=== PATIENT | male | born 1950 | race Caucasian/White ===

== ENCOUNTER 2016-07-19 10:45 | Inpatient (IN) | payer OTHER, MEDICARE ==
[~2016-07-19] VITALS: Ht 177.8 cm; Wt 91.6 kg
[2016-07-19] VITALS (13 sets, daily range): BP systolic 112–151; BP diastolic 59–104; PULSE 51–71; RESP 9–17; O2SAT 93–98
--- NOTE | 2016-07-19 10:37 | ED.REPORT ---
HPI-Chest Pain 40 and Over Date of Service July 19, 2016 ED Provider: Farhan Tejeda MD History of Present Illness: I received a phone call from [facility] indicating that a patient with a suspected inferior ST segment elevation ME, and I activated the Hematology Oncology Consultant process based on that information. Patient has received aspirin, Plavix (600mg), nitroglycerin, and a heparin bolus of 5000 units prior to arrival. Patient is a 65 year old male who presents to the ED via EMS due to a possible STEMI. The patient is now asymptomatic but prior to arrival the patient complained of a dull chest pain that radiated into his left shoulder this morning. He rated the pain as a 4/10. Please note that I performed a limited history and physical as the manager behavior Dr. Castle is also at bedside. This is a patient with sounds like a history of suspected heart disease, but not formally diagnosed-he is on statins and an NATALIA inhibitor at baseline, but is never had a previous cardiac catheterization but episode of chest discomfort last night that then resolved, and a more severe episode of chest discomfort that took him to the outside hospital [facility], where his initial EKG was concerning for inferior ST segment elevation ME, and he was transferred here for further management. His symptoms have now resolved. His EKG normalized. He has received aspirin, Plavix, heparin, nitroglycerin. He has no history of bleeding complications. No history of anemia. Nursing Notes Stated Complaint: ACUTE CHEST PAIN/STEMI Nursing Notes Reviewed: Yes ([employer], [employer] not reconciled) Allergies: Coded Allergies: prochlorperazine (Verified Allergy, Mild, RIGIDITY, 07/19/16) General Time Seen by MD: 10:34 Chief Complaint Chest pain Hx Obtained From: Patient Arrived By: Ambulance Sudden in Onset?: Yes Severity: Current: No pain currently Similar Sx Previous: No Past Medical History Past Medical History Hypertension She states he has "low cholesterol" but his medications list is statin Patient is on isosorbide, indicating some underlying suspicious for component of coronary disease Denies: Diabetes mellitus Smoking History Former Smoker Social History Alcohol Use: Denies alcohol use Drug Use: Denies drug use Other Social History: Ambulatory Status Independent Review of Systems Respiratory: Denies: Non-productive cough, Shortness of breath Cardiovascular: Reports: Chest pain Musculoskeletal: Reports: Extremity pain Complete sys rev & neg: except as marked. Physical Exam Initial Vital Signs Vital Signs (First) Date Time Temp Pulse Resp B/P Pulse Ox O2 Delivery O2 Flow Rate FiO2 07/19/16 10:48 36.6 64 14 151/104 98 Room Air Initial VS: Reviewed, Vital signs normal General/Constitutional: Awake, Alert, No acute distress Respiratory / Chest: Atraumatic, Breath sounds NL, Breath sounds = bilat, No respiratory distress Cardiovascular: Heart rate NL, Regular rhythm, Heart sounds NL Abdomen: Atraumatic, Soft, Non-tender Skin: Atraumatic, Color NL, No rash, Warm, Dry Neurologic: Oriented X3, Speech NL, No motor deficits, No sensory deficits Psychiatric: Affect NL, Mood NL Head / Eyes: Atraumatic, Normocephalic, PERRL, EOMI Interpretation & Diagnostics Lab Results Interpretation Result Diagram: 07/19/16 1135 07/19/16 1135 Lab Results Interpretation: Labs pending, Labs reportedly from [facility] indicated indeterminate troponin CBC normal CMP normal Troponin elevated, w/ME ECG Interpretation ECG Interpretation: EKG in the emergency department reveals resolution of the previously identified ST segment elevation inferiorly, please see the original and diagnostic EKG from [facility] that demonstrates the inferior lead abnormalities Interpreted by: ED physician X-Ray Chest Interpretation Chest Xray Interpretation: IMPRESSION: Negative chest. Dictated by: Luis Hess M.D. on 07/19/2016 at 11:01 Approved by: Luis Hess M.D. on 07/19/2016 at 11:02 View: Portable, 1 view Interpretation / Wet Read by: Interpret - Radiologist Re-Eval/Medical Decision Med Decision/Clinical Course This is a 65-year-old male transferred from an outside hospital concern for an inferior STEMI. The STEMI process was activated. Cardiology was at bedside when the patient arrived. He is now feeling much better. His EKGs from the facility were reviewed and do demonstrate ST segment abnormalities concerning for inferior ischemia, but his symptoms are now improved and his EKG is now improved with resolution of those ST segment abnormalities. The patient has already had initial therapy with aspirin, Plavix, nitrates, and heparin bolus. The patient clinically appears well and is not any current extremity. His vitals are normal. He demonstrates no stigmata of heart failure. He has no contraindications to Hematology Oncology Consultant intervention. The manager behavior as taking the patient to the Hematology Oncology Consultant for further management. Source of Hx: Old records, EMS Time of Eval: 11:16 Re-Evaluation/Progress Note: Discussed plan for admit with patient and patient's . The patient understands and agrees to the plan for admit. All questions were addressed. Consultation #1: Consulted With: Cardiology Requested Call at: 10:10 Note: Notified of STEMI Consultation #2: Consulted With: Cardiology Requested Call at: 10:32 Note: Dr. Castle in ED awaiting patient arrival Differential Diagnosis: Positive: Acute coronary syndrome, Acute myocardial infarct, Chest pain, acute, Myocardial infarction, Unstable angina, Negative: Congestive heart failure, Dysrhythmia, Gun shot wound chest, Pericarditis, Pneumonia, Pneumothorax, Pulmonary edema, Pulmonary embolism Counseled Regarding: Diagnosis, Lab results, Need for admission Discharge & Departure Primary Impression: STEMI (ST elevation myocardial infarction) Involved coronary artery: unspecified coronary artery Qualified Code: I21.3 - ST elevation (STEMI) myocardial infarction of unspecified site Disposition: ADMITTED TO HOSPITAL Discharge Condition All VS Reviewed: Yes Condition: Stable Crit Care Except Billable Proc Time Spent: 30-74 minutes Services Performed: Patient management by me, Time spent at bedside, Reviewing test results, Reviewing imaging, Discussing patient care, Time with fam/ surrogate (updated ) Critical Care Notes: Critical CARE/STEMI ED Stephen Dixon Attestation Portions of this note were transcribed by Mala Schmitz. I, Dr. Tejeda personally performed the history, physical exam and medical decision-making; I reviewed and confirmed the accuracy of the information in the transcribed note. Signed by: Zack Hernandez, 07/19/16 and 1105. Farhan Tejeda MD July 19, 2016 10:37 Juju Schmitz July 19, 2016 11:03
[~2016-07-19 10:45] MED LIST: 0.9% Sodium Chloride 250 ML ONE; Heparin 1,000 Unit/mL 10 mL Inj ONE; Heparin 1,000 Units/500 mL NS Premix IV ONE; Heparin 10,000 Unit/1,000 mL NS Premix IV ONE; Heparin 5,000 Units/500 mL NS Premix IV ONE; NitroPRUSSIDE 25,000 mCg/mL 2 mL Inj IV ONE; Nitroglycerin 50,000 mcg/250 mL D5W Premix IV ONE
--- NOTE | 2016-07-19 11:04 | DRSVH ---
PROCEDURE: X-RAY CHEST ONE VIEW, PORTABLE ([id number]) INDICATIONS: CHEST PAIN TECHNIQUE: One view of the chest was acquired. COMPARISON: None. FINDINGS: Surgical changes and devices: None. Lungs and pleura: No pleural effusions or pneumothorax. Lungs are clear. Mediastinum: Mediastinal contours appear normal. Heart size is normal. Bones and chest wall: No suspicious bony lesions. Overlying soft tissues appear unremarkable. IMPRESSION: Negative chest. Dictated by: Luis Hess M.D. on 07/19/2016 at 11:01 Approved by: Luis Hess M.D. on 07/19/2016 at 11:02
[2016-07-19] MEDS ORDERED: fentaNYL-PF 50 mCg/mL 2 mL Inj ONE ×3 (11:12→11:47)
[2016-07-19 11:48] LABS: BASOPHILS % (AUTO) 0.2 % (0-3); EOSINOPHILS % (AUTO) 0.5 % (0-5); MONOCYTES % (AUTO) 4.6 % (4-12); Mean Corpuscular Hemoglobin 30.2 pg (27.0-35.0); Mean Corpuscular Volume 85.5 fL (81-100); NEUTROPHILS % (AUTO) 80.5 % (40-74); Platelet Count 176 bil/L (150-400)
[2016-07-19] MEDS ORDERED: Heparin 10,000 Unit/1,000 mL NS Premix IV ONE (12:18)
[2016-07-19] MEDS ORDERED: Atropine 1 mg/10 mL (Code) Syringe ONE (12:23)
[2016-07-19 12:26] LABS: Magnesium 1.8 mg/dL (1.6-2.6)
[2016-07-19] MEDS ORDERED: Heparin 1,000 Unit/mL 10 mL Inj ONE (12:30)
[2016-07-19 12:37] LABS: TROPONIN T 0.084 ug/L (0.0-0.011)
[2016-07-19] MEDS ORDERED: Ondansetron 2 mg/mL 2 mL Inj IVPUSH PRN (14:00)
[2016-07-19] MEDS ORDERED: Atropine 1 mg/10 mL (Code) Syringe IVPUSH PRN (14:00)
[2016-07-19] MEDS ORDERED: 0.9% Sodium Chloride 400 ML (4 HRS) IV ONE (14:00)
[2016-07-19] MEDS ORDERED: 0.9% Sodium Chloride 250 ML BOLUS IV PRN (14:00)
--- NOTE | 2016-07-19 15:38 | CS94 ---
[address] [address] DIAGNOSTIC CARDIAC CATHETERIZATION PATIENT: WAYNE HERMAN : 1950 MR#: [id number] ADMIT: 07/19/2016 JOB ID: [id number] SERVICE DATE: 07/19/2016 PROCEDURE NOTE--CARDIAC CATHETERIZATION LABORATORY: Date of procedure: Tuesday, July 19, 2016. Ep Technologist: Dima Castle MD. PROCEDURES: 1. Coronary angiogram--emergent. 2. Left heart catheterization (LHC)--pressure measurements; and left ventriculogram (LVG). 3. Percutaneous coronary intervention (PCI): a. Stent of mid RCA--Vision 3.0 x 15 mm BMS (bare metal stent). CLINICAL DETAILS: This 65-year-old man presents to the cardiac catheterization laboratory immediately after he was transferred by EMS from [facility] where he initially presented because of an episode of severe retrosternal and left upper extremity chest discomfort associated with diaphoresis noted on awakening this morning. He had a prior similar but less severe episode last evening. On presentation, he had no residual chest discomfort. On presentation at the outside hospital, he had subtle inferior ST elevation but suggestive of reciprocal ST depression and ST elevation in lead V4R. On transfer here, the ECG changes had cleared and the ECG was not outside normal limits. The impression was acute coronary syndrome with transient ST elevation. He has a cardiac history that includes exertional chest pressure consistent with angina about four years ago at which time he had a "stress test" and was told of "heart okay but blocked arteries." He was treated medically including with nitrates. He has had rare but occasional exertional angina for example while climbing hills. Underlying CAD risk factors include: Hypertension. PROCEDURAL DETAILS: I met him in the emergency department as he arrived and evaluated him there. I discussed the findings, recommendations and management considerations including recommendation to proceed immediately to cardiac catheterization for definitive diagnosis and to guide treatment decisions including medical therapy, anticipated PCI; or coronary bypass surgery if needed. We discussed the procedure including risks and complications. We discussed bleeding, infection, blood clot, as well as injury to nerve, artery, vein or kidney; and also arrhythmia drug reaction; or others. We discussed also treatment as needed including surgery, pacemaker or transfusion. We discussed more serious complications that can occur including stroke, heart attack, cardiac arrest, or emergency surgery including transfer for coronary bypass. After discussion and questions, he signed informed consent to proceed. He was taken to the cardiac catheterization laboratory n.p.o. where he was prepped sterilely and draped. Conscious sedation was used. CORONARY ANGIOGRAM: Arterial access was obtained without difficulty in the right common femoral artery using fluoroscopic localization over the femoral head and modified Seldinger technique to insert a 10 cm 6-Pakistani side-arm sheath. Catheters were advanced and exchanged over a long 0.035 inch J-tipped guidewire. Venous access was also obtained for the procedure using a similar technique to insert a 10 cm, 4-Pakistani side-arm sheath in the right common femoral vein without difficulty. For coronary angiography, the left coronary artery was engaged with a 6-Pakistani JL-four diagnostic catheter. The right coronary artery was imaged using a 6-Pakistani JR-4catheter. LHC: During the procedure, the catheter crossed the aortic valve into the left ventricle; and pressure measurements were made. At the end of the procedure, a 6-Pakistani pigtail catheter was advanced across the aortic valve into the left ventricle to perform a left ventriculogram which was obtained in the BIRD 30-degree projection using 36 cc of contrast injected at 14 cc/second. PCI of mid RCA: The diagnostic images were reviewed. Decision was made to proceed with emergent PCI of the culprit tubular 99% mid RCA lesion with a visible filling defect of thrombus (JARVIS-2 flow). I also considered coronary bypass in view of his multi-vessel disease and subtotally occluded LAD with diffuse disease. I discussed with Dr. Rucker of cardiac surgery at [facility]. Prior to the catheterization lab the patient had received ASA; and he had received some Plavix but the dose was unclear (300-600 mg). He had received a 5000 unit bolus of heparin IV. For this procedure, he received additional loading dose of Plavix 300 mg p.o. Procedural anticoagulation was obtained with bolus IV heparin to achieve therapeutic ACT. Aliquots of NTG IC were used during the procedure. PREDILATATION: The RCA was engaged for intervention with a 6-Pakistani JR-4 guide catheter. The lesion was crossed with a BMW wire--0.014 inches x 190 cm--which was placed without difficulty distally in the PDA. The lesion was pre-dilated with a Trek PTCA balloon--2.5 x 15 mm--inflated to 8 atmospheres. The lesion was improved and flow in the RCA was improved. Regarding door to balloon time, this case was not considered "STEMI" in the absence of chest pain and ST elevation. STENT: Next, the culprit lesion was treated with a Vision BMS--3.0 x 15 mm--deployed across the treatment site at 18 atmospheres. Completion angiogram showed an excellent angiographic result with no residual lesion; JARVIS-3 flow restored; and no evident angiographic complication. Procedure without difficulty. Patient tolerated procedure well. No complications. The side-arm sheath angiogram shows adequate RFA access for a closure device; and arterial hemostasis was obtained without difficulty using a 6-Pakistani Perclose suture. The patient was transferred from the catheterization laboratory chest-pain free and in stable improved condition to the CCU for ongoing care. I discussed the procedure findings and ongoing management considerations with the patient; with his family; and with Cardiology. FINDINGS: 1. LMCA: Intact. The LMCA is a long vessel with only mild atherosclerotic narrowing. There is some atherosclerotic plaque in the distal LMCA contiguous with the occluded ostial LAD. 2. LAD: Functionally occluded at the ostium. The LAD is a transapical vessel which appears thready and severely diffusely diseased. It is seen faintly by limited antegrade and possibly by collateral filling. There may be diffuse distal disease as well. However, given that the LAD is underfilled, it may be a target for CAD. There is a long diagonal seen as well. Note also after revascularization of RCA collaterals to the distal and mid LAD are noted. 3. LCX: Codominant. Intact. The left circumflex coronary artery is a large vessel with a large high OM-1, a moderate OM-2, and a medium-sized posterolateral branch. 4. RCA: Codominant. Note 99% tubular mid RCA lesion with JARVIS-2 flow and a filling defect of acute thrombus. This is the culprit lesion for his clinical presentation. The RCA is a large vessel; and the distribution includes a medium to large size PDA. 5. LHC: LVED 20 mmHg (pre A 15); and no systolic gradient on pullback across the aortic valve. 6. LVG: Limited by PVCs but the left ventricle appears mildly dilated with moderate to severe global left ventricular dysfunction with ejection fraction about 35% to 40%; and there is inferior akinesis with anterior hypokinesis and apical hypokinesis. No MR. CONCLUSIONS: 1. PCI--Vision BMS--3.0 x 15 mm--of thrombotic mid RCA culprit lesion. 2. ACS--transient inferior ST elevation. 3. Coronary artery disease (CAD)--Two-vessel disease including functionally occluded ostial LAD; and a culprit acute thrombotic subtotal mid RCA lesion. RECOMMENDATIONS: 1. ECASA--indefinitely. 2. Plavix--Plan Plavix 30 days after BMS including with Cardiology followup. I discussed with the patient and his family the critical importance of mandatory dual antiplatelet therapy; and not to stop Plavix for any reason without immediate Cardiology consultation. 3. Echo. 4. OMT-optimal guideline-directed medical therapy of CAD and underlying risk factors, including aspirin, Plavix, statin, metoprolol, beta glenda, and later NATALIA inhibitor. COMMENT: Plan: Clinical followup including to consider revascularization of the ostial LAD pending further clinical evaluation including his symptomatic status, ischemia and LV function. This vessel does not appear to be a good interventional target. Consider CAB as well.
--- NOTE | 2016-07-19 16:16 | HP ---
[address] [address] HISTORY AND PHYSICAL PATIENT: WAYNE HERMAN : 1950 MR#: [id number] ADMIT: 07/19/2016 JOB ID: [id number] CARDIOLOGY ADMISSION HISTORY AND PHYSICAL--INITIAL CRITICAL CARE EVALUATION ( EMERGENCY DEPARTMENT): DATE OF EVALUATION: Tuesday, July 19, 2016. ADMITTING PHYSICIAN: Cardiology--Dima Castle MD. PROBLEMS: 1. Acute coronary syndrome (ACS): a. Chest pain--two episodes of chest pain; and chest-pain free on presentation. b. Abnormal ECG--transient inferior STEMI; but with ST resolved on presentation. c. History of exertional angina for four years. CAD RISK FACTORS: Diabetes--No diabetes; and note history of "prediabetes" resolved with diet. Cigarettes--Lifetime nonsmoker. Hypertension--History of treated hypertension. Hyperlipidemia--No history of hyperlipidemia; but on pravastatin after diagnosis of angina. Family history--No family history of premature coronary disease. OTHER PROBLEMS: History of sleep apnea. CHIEF COMPLAINT: Called for "STEMI activation." Chest pain; and inferior ST elevation on ECG. HISTORY OF PRESENT ILLNESS: PRESENTATION: I was called by the ED, and came emergently to see this 65-year-old man as he arrived by EMS transport from [facility] after he presented there with a severe episode of retrosternal chest pressure radiating to the left arm--intensity seven on a scale of 10; and with marked diaphoresis; but no dyspnea, dizziness, or nausea. This began on awakening this morning. It was cleared on arrival to the emergency department. He was pain free. He had a similar episode last night while in the house at dinner. Prior to presentation, he had received aspirin and some Plavix but dose unclear (300-600 mg). He had received heparin 5000 units IV. He was otherwise clinically stable regarding vital signs and rhythm. CARDIAC HISTORY: He tells me he has known of angina for four years after an initial episode of exertional chest discomfort that led to a treadmill test. He was told "heart good, but blocked arteries." He had no further evaluation including he has never had heart catheterization. He takes nitroglycerin and reports he has had occasional exertional chest pressure such as when walking up a hill; but very infrequently. He has had no other premonitory or progressive symptoms recently. Otherwise he has no history of heart failure; and no symptoms of chronic dyspnea, nocturnal dyspnea, or edema. He has no history of arrhythmia; and no current symptoms of arrhythmia, including tachy palpitation, presyncope, or syncope. Regarding other vascular disease, he has no history of stroke or current symptoms of TIA. No claudication. Regarding dual antiplatelet therapy, he has no current bleeding symptoms; no anticipated surgery; and he reports he is reliable to take mandatory medicines as needed. ALLERGIES: I elicit no history of allergy to medical contrast, seafood, fish, iodine or shellfish. Allergy to PROCHLORPERAZINE reported. MEDICATIONS: 1. Atenolol. 2. Nitrates. 3. ASA. 4. Statin. 5. Diuretic. PAST MEDICAL HISTORY: He reports he is otherwise generally healthy. REVIEW OF SYSTEMS: I questioned him in the emergent setting regarding a 13-point review of systems which is unremarkable, noncontributory, or negative except as noted including: No constitutional symptoms. No history of pulmonary disease including chronic dyspnea, asthma or wheezing. No history of GI disorder including indigestion, ulcer, hepatitis, or jaundice. PERSONAL AND SOCIAL HISTORY: Cigarettes--lifetime nonsmoker. Alcohol: He reports he drinks somewhat occasionally. Family--He lives with his significant other who was present along with his daughter. 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 FAMILY HISTORY: No family history of premature coronary disease. EXAMINATION: GENERAL APPEARANCE: A pleasant, well-developed middle-aged man who is comfortable at rest. VITAL SIGNS: Blood pressure 151/104, initially with heart rate 64, regular, in sinus rhythm on telemetry. Respiratory rate 18 and unlabored. SpO2 98% on room air. Afebrile. Weight 82 kg. NEUROLOGIC AND MENTAL STATUS: No overt focal neurologic defect noted. HEENT : PERRL, conjunctivae pink. Sclerae not icteric. Mouth and mucous membranes intact. NECK: Carotid upstroke intact bilaterally without bruit. Jugular venous pressure unremarkable. No palpable thyromegaly. No palpable cervical lymphadenopathy. LUNGS: Clear to auscultation bilaterally. CARDIAC: No chest wall tenderness. Heart otherwise notable for regular rhythm, S4 gallop; and there is no loud murmur heard. ABDOMEN: Unremarkable examination without tenderness, mass, hepatosplenomegaly or bruit of abdominal aortic aneurysm. EXTREMITIES: No edema. Pedal pulses intact bilaterally at the posterior tibial. DIAGNOSTIC STUDIES: ELECTROCARDIOGRAM: I reviewed the outside ECGs and the ECG on admission here which show sinus rhythm. There is subtle inferior ST elevation with confirmatory reciprocal ST depression in lead aVL, and there is ST elevation in lead AVR. This is cleared on the ECG on arrival here. The impression is transient ST elevation, strongly suggestive of right coronary artery ischemia. CHEST X-RAY: I reviewed the chest x-ray film which is unremarkable without cardiomegaly or heart failure. LABORATORY: CBC includes WBC 8800, with hemoglobin 17.1, hematocrit 48.4, normal indices, and platelet count 176,000. Chemistries include potassium 4.2, BUN 20, creatinine 1.01, with glucose 155. LFT unremarkable. Magnesium 1.8. Cardiac markers include elevated troponin 0.084. ASSESSMENT: I discussed the findings, impressions, and management considerations with him; later with his family when they arrived; and with the emergency department staff includin. Acute coronary syndrome with chest pain and transient ST elevations; now both cleared on presentation: The clinical scenario is strongly suggestive of underlying coronary disease in this 65-year-old man who has a history of prior stable exertional angina, now with the sudden onset of two episodes of rest pain and transient ST elevation. The right coronary artery is likely the culprit. We discussed the recommendation to proceed immediately to cardiac catheterization for definitive diagnosis, and to guide treatment options including medical therapy, PCI, or coronary bypass if needed. We discussed the procedure including risks and complications. PLAN: 1. Cardiac catheterization--immediately. 2. Echocardiogram. 3. Admit to CCU. 4. OMT--Optimal guideline medical guideline directed medical therapy of anticipated CAD; and of underlying CAD risk factors. ALLIED
--- NOTE | 2016-07-19 16:25 | NUR ---
Left femoral venous sheath was pulled at 1610 by Luis Enrique in the quality lab technician.
[2016-07-19] MEDS ORDERED: ATEN25TA PO (17:09)
[2016-07-19] MEDS ORDERED: PRAV40TA PO (17:09)
[2016-07-19] MEDS ORDERED: ASPI-973 PO (17:09)
[2016-07-19] MEDS ORDERED: ISOS30TA4 PO (17:09)
[2016-07-19] MEDS ORDERED: MULT1CAP33 PO (17:09)
[2016-07-19] MEDS ORDERED: LISI-607 PO (17:09)
--- NOTE | 2016-07-19 17:19 | NUR ---
Admit Patient admitted from [facility] around 1330. A/O. Denies pain. "I feel so much better". Right groin soft, w/o bleeding or hematoma. Left groin venous site is intact-- dcd by clinical laboratory assistant at 1610. Left groin site continues w/o bleeding or hematoma. Tele SB-SR (60). Patient has had frequent PVCs and a couple of runs of VT. MD aware and said, "thats to be expected". Patient asymptomatic. On RA, sats at 97-99%. Lungs clear. Advanced to heart healthy diet. On BR until 1810 s/p venous line pulled. Patient aware. IVF-- NS at 100/hr until 2330. Patient has voided per urinal x1. Supportive family at bedside. Continuing with poc.
[2016-07-20] VITALS (7 sets, daily range): BP systolic 128–133; BP diastolic 68–72; PULSE 53–68; RESP 11–14; O2SAT 96–97
[2016-07-20 04:29] LABS: Mean Corpuscular Hemoglobin 30.4 pg (27.0-35.0); Mean Corpuscular Volume 88.1 fL (81-100)
--- NOTE | 2016-07-20 05:50 | NUR ---
Groin Sites/TELE Pt's bilateral groin puncture sites soft/non tender with small amount of bruising with Right>left side. Pt reports no pain/nausea. Pt's tele has been SB 50-60bpm throughout the night with occasional ectopy and a single episode of 13 beats of VTACH. Pt asymptomatic. Pt slept well throughout the night.
--- NOTE | 2016-07-20 11:45 | DRSVH ---
[facility] [address] [place] [address] Echocardiogram Report Name: WAYNE HERMAN Study Date: 07/20/2016 Height: 70 in Hospital Exam Location: [facility] Weight: 222 lb Gender: Male BSA: 2.2 m2 : 1950 Age: 65 yrs BP: 131/71 mm Hg Reason For Study: CAD Performed By: Karolina Overton Referring Physician: OTF THORNE Interpretation Summary 1) Normal left ventricular thickness and size with low normal function (EF 50 -55%). 2) Distal inferior wall hypokinesis present. 3) Normal right ventricular size and function. 4) No significant valvular disease. 5) No prior Echo available for comparison. Procedure: A two-dimensional transthoracic echocardiogram with color flow and Doppler was performed. The study quality was technically good. There is no prior echocardiogram noted for this patient. The patient was in normal sinus rhythm during the exam. Left Ventricle: The left ventricle is normal in size. There is normal left ventricular wall thickness. The ejection fraction is estimated to be 50-55%. Distal inferior wall hypokinesis. Right Ventricle: The right ventricle is normal in size and function. Atria: The left atrial size is normal. Right atrial size is normal. The interatrial septum is intact with no evidence for an atrial septal defect. Mitral Valve: The mitral valve is normal in structure and function. There is trace mitral regurgitation. Aortic Valve: The aortic valve is trileaflet. The aortic valve opens well. There is no aortic valve stenosis. No aortic regurgitation is present. Tricuspid Valve: The tricuspid valve is normal in structure and function. There is trace tricuspid regurgitation. The right ventricular systolic pressure is estimated at 32 mmHg assuming a right atrial pressure of 3 mm Hg. Pulmonic Valve: The pulmonic valve is normal in structure and function. There is trace pulmonic regurgitation. Great Vessels: The aortic root is normal size. The dimensions of the ascending aorta are normal. The IVC is of normal diameter and collapses greater than 50% with a sniff. This suggests a low right atrial pressure of 3 mm Hg. Pericardium/ Pleura There is no pericardial effusion. There is no pleural effusion. MMode/2D Measurements & Calculations LVIDd: 5.1 cmLA dimension: 3.8 cm RA long axis: 5.7 cm Ao root diam LVIDs: 3.3 cm FS: 36.4 % LA A2 area: 22.7 cm RA area: 20.9 cm Aortic Jxn: 3.0 cm IVSd: 1.00 cmLA A4 area: 20.2 cm RA vol: 65.3 ml asc Aorta Diam LVPWd LA length (vol) RA : 29.9 ml/m2 : 0.9cm Ao Arch Diam (Prox LA vol: 66.7 ml Trans): 3.0 cm LA vol index IVC diam: 1.3 cm EDV(MOD-sp2) LV sun. diameter/BSA LV sys. diameter/BSA (cm/m^2): 2.4 (cm/m^2): 1.5 ESV(MOD-sp2) EF(MOD-sp2) Doppler Measurements & Calculations LVOT Max Codey MV E max codey MV E/A: 1.6 TR max codey : 111.8 cm/sec : 67.9 cm/sec Med Peak E' Codey : 270.1 cm/sec MV A max codey TR max PG : 41.8 cm/sec E/E' med: 8.6 : 29.2 mmHg MV P1/2t: 70.6 msecLat Peak E' Codey PA V2 max : 82.1 cm/sec E/E' lat: 8.1 PA mean PG E/e' average PA Accel Time Pulm A Revs Dur : 0.10 sec MV A dur : 0.11 sec MV dec time: 0.24 sec MV P1/2t max codey LV V1 max PG PA V2 mean : 48.6 cm/sec LV V1 VTI MVA(P1/2t): 3.1 cm2: 26.1 cm Pulm Kalen Danielle - MV A Dur: 0.01 msec Reading Physician:11:45 AM
--- NOTE | 2016-07-20 18:11 | PROG NOTE ---
[address] [address] PROGRESS NOTE PATIENT: WAYNE HERMAN : 1950 MR#: [id number] ADMIT: 07/19/2016 JOB ID: [id number] CARDIOLOGY PROGRESS NOTE--FOLLOW-UP INPATIENT VISIT: DATE OF EVALUATION: Wednesday, July 20, 2016. EVALUATING PHYSICIAN: Cardiology--Dima Castle MD. PROBLEMS: 1. ACS with transient inferior ST elevation; and PCI of Mid RCA. HOSPITAL COURSE AND INTERIM PROGRESS: Hospital Day-2. I saw the patient along with his significant other in his CCU room on Cardiology rounds today, Wednesday, July 20, 2016. In summary, he has been stable, and he has done well with progress as expected after presenting yesterday morning with chest pain and transient inferior ST elevation. He had emergent catheterization and was found to have a culprit thrombotic subtotal Mid RCA lesion which was treated with intervention and a large bare-metal stent. He also was found to have chronic total occlusion of the ostial LAD. Since the catheterization, the additional RFV venous sheath was pulled without difficulty. Vital signs were stable. He was noted to have one episode of nonsustained VT of 13 asymptomatic beats. He has been up and around today and ambulated in the room, but not yet in the hallway. He was hydrated post catheterization and had vigorous urine output. There has been no problem with the right groin arterial access site. EXAMINATION: The right lower extremity is fully intact without ecchymosis, hematoma, pulsatile mass, bruit; and peripheral perfusion including right pedal pulses are intact. ECG : The postprocedure ECG was virtually normalized. LABORATORY: Creatinine intact. Peak CK total was 860--modestly elevated. Echocardiogram: I reviewed the Echo images that show normal LV size and mildly diminished LV global systolic function with ejection fraction about 40%. There is anterior and inferior hypokinesis. ASSESSMENT: I discussed the findings, impressions and management considerations with him and his significant other including: ACS with transient ST elevation and PCI of culprit mid RCA lesion: He has done very well. He feels ready go home today. I recommended hospital observation until anticipated discharge tomorrow in order for him to re-ambulate more fully and for observation after his infarct that was more than mild; and also in view of his multi-vessel CAD. We discussed his course, progress and status at length. We discussed recommendations ongoing for return to activity and medical follow-up including: Not to lift more than 10 pounds for 10 days while catheterization access site heals. Then we discussed "exercise prescription" for moderate symptom limited progressive stepwise return to normal activities. He wants to mow his lawn; I recommended to return to that sort of activity gradually to make sure he has no symptoms. He knows to limit activities and get medical follow-up if any symptoms. We discussed the strong recommendation and great value of a rehab program. He seems inclined to pursue this. We discussed his medical regimen including the critical importance of mandatory dual antiplatelet therapy including Plavix for 30 days for his Stent; and then Plavix needed for his ACS for a year if well tolerated with ongoing Cardiology follow-up. We discussed follow-up with PCP in 3-7 days; and with Cardiology in 7-10 days. We discussed options that can be considered in office follow-up for his residual coronary disease including consideration of observation of his apparently chronic and somewhat collateralized LAD occlusion. 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 We discussed that the most compelling indication to proceed with further revascularization would be ongoing anginal symptoms; and that stress test can be considered. PLAN: 1. Re-ambulate further today. 2. Anticipate discharge in a.m. if stable. 3. Follow-up of CAD--Consider outpatient myocardial perfusion scan to evaluate for prognostically severe anterior ischemia; and consider CT surgery evaluation to help assess if the LAD is a bypass target (if so off pump MANSFIELD might be considered). SUZETTE
[2016-07-21 03:31] VITALS: BP 128/76; PULSE 66; RESP 16; O2SAT 97
--- NOTE | 2016-07-21 05:16 | NUR ---
Transfer of care Received report from Lai Pinedo RN. Pt is A&Ox3 independent in room. Groin sites are soft non tender with no hematoma noted. VSS and Tele SB/R 50's to 60's.
[2016-07-21 07:43] VITALS: BP 135/85; PULSE 68; RESP 16; O2SAT 98
[2016-07-21 09:26] VITALS: PULSE 71
--- NOTE | 2016-07-21 11:55 | PCM.DIMED ---
Discharge Instructions Date of Service July 21, 2016 Dates of Hospitalization July 19, 2016 at 14:23 Discharge Diagnosis Discharge Diagnosis Acute inferior ST - elevation ND, s/p bare metal stent placement to mid RCA (), CAD, HTN Medication Instructions Additional med instructions Please take all medications as prescribed. It is very important that you take Clopidogrel (Plavix) every day at least 2 month and preferably the whole year if you tolerate it well. You will need to take baby Aspirin every day indefinitely. STOP Atenolol STOP Lisinopril/HCTZ STOP Pravastatin STOP Isosorbide mononitrate We started you on different cholesterol medication Atorvastatin 80 mg one tablet every evening Also we started you on Lisinopril 5 mg one tablet daily. Please continue Aspirin 81 mg daily. We started you on Clopidogrel (Plavix) 75 mg one tablet every day. Also we started you on Carvedilol 3.125 mg one tablet twice a day (this is instead of Atenolol) Please do not stop any medications and especially Clopidogrel (Plavix) without consulting with Cook [employer]. Diet Discharge Diet: Low fat, Low Sodium, Heart Healthy Activity Discharge Activity: Other (Please see below) Patient Instructions Patient Instructions You can take shower starting from today. Please do not soak in bath tub for one week. No car driving for couple of days. No heavy lifting, no more than 7-10lb for one week. Otherwise you can be physically active as tolerated. If you have chest pain, please call 911 and go to ER. Follow-up plan Please do blood work: CMP and CBC in one week Provider: Yogesh Dave MD Follow-up in: 3 weeks Royal Robin PA-C July 21, 2016 11:55
[2016-07-21] MEDS ORDERED: NITR0.4T SL (12:11)
[2016-07-21] MEDS ORDERED: ATOR80TA PO (12:11)
[2016-07-21] MEDS ORDERED: METO25TA6 PO (12:11)
[2016-07-21] MEDS ORDERED: CLOP75TA28 PO (12:11)
[2016-07-21] MEDS ORDERED: LISI-571 PO (12:11)
--- NOTE | 2016-07-21 12:13 | PCM.DC.MED ---
Discharge Summary Date of Service July 21, 2016 Dates of Hospitalization Date of Hospital Admission July 19, 2016 at 14:23 Date of Discharge: July 21, 2016 Providers: Admitting Physician: Dima Castle MD Primary Care Physician: Angela Attending Physician: Dima Castle MD Diagnosis at Time of Discharge Diagnosis at Time of Discharge Acute inferior ST - elevation PR, s/p bare metal stent placement to mid RCA (), CAD, HTN Brief History This is a very pleasant 65-year-old gentleman with a history of hypertension, who on 07/19/2016 was admitted to [facility] with acute inferior ST elevation PR and had an emergent cardiac catheterization the same day. Hospital Course Coronary angiography showed 99% tubular mid RCA lesion which was treated with bare metal stent. He also had functionally occluded ostial LAD which per hydrochloric area supervisor Dr. Dave' s advise will be addressed next week at scheduled elective coronary angiography with possible PCI. Dr. Dave discussed this matter with the patient today. ECHO from 07/20/2016 showed: Normal left ventricular thickness and size with low normal function (EF 50 -55%); Distal inferior wall hypokinesis present; Normal right ventricular size and function; No significant valvular disease. The patient tolerated procedure well. He is physically active, ambulating freely. Denies having any chest discomfort or PORRAS; he does not have symptoms of nocturnal pulmonary congestion; denies having palpitations. Right and left groin areas are nontender with palpation, no bleeding no hematoma , no bruits with auscultation. He is euvolemic one exam. His BP is borderline On telemetry sinus rhythm with HR in 60-70s with occasional PVCs On EKG today Q waves with TWIs in III and aVF, HR 60 bpm The patient was started on Clopidgrel in addition to baby ASA. On discharge I stopped his outpatient Atenolol, Lisinopril/HCTZ, Pravastatin and Isosorbide mononitrate He was started on Atorvastatin 80 mg one tablet every evening Also, on discharge I started him on Lisinopril 5 mg one tablet daily. He will need BMP check in one week. In hospital he was kept on Metoprolol tartrate 12.5 mg BID. On Discharge I switched him to Carvedilol 3.125 mg BID which could be uptitrated as needed later Medications on discharge are below. The case and management was discussed and coordinated with cardiologists Dr. Castle and Dr. Dave. Exam Vital Signs (Last) Date Time Temp Pulse Resp B/P Pulse Ox O2 Delivery O2 Flow Rate FiO2 07/21/16 09:26 71 07/21/16 07:43 16 135/85 98 Room Air 07/21/16 03:31 36.9 Exam General: no acute distress EENT: MMM, sclera anicteric Neck: supple, no thyromegaly Respiratory: normal breathing sounds bilaterally, no crackles, no wheezing Cardiac: RRR, no murmur appreciated Abdomen: nontender with palpation Extremities; no LE edema, peripheral pulses are preserved Neuro: A&O x3, no gross abnormalities. Test 07/19/16 11:35 07/19/16 15:39 07/20/16 03:50 07/21/16 08:24 Neutrophils (%) (Auto) 80.5% (40-74) Lymphocytes (%) (Auto) 13.7% (14-46) Monocytes (%) (Auto) 4.6% (4-12) Eosinophils (%) (Auto) 0.5% (0-5) Basophils (%) (Auto) 0.2% (0-3) Magnesium Level 1.8mg/dL (1.6-2.6) Total Bilirubin 1.0mg/dL (0.0-1.2) Aspartate Amino Transf (AST/SGOT) 26U/L (0-50) Alanine Aminotransferase (ALT/SGPT) 17U/L (0-44) Alkaline Phosphatase 60U/L (25-160) Troponin T 0.084ug/L (0.0-0.011) Total Protein 6.9g/dL (6.4-8.4) Albumin 4.0g/dL (3.4-5.0) Hold Gonzalez Top Tube Received (Received) Hold Urine Received (Received) White Blood Count 8.6th/mm3 (3.8-10.1) Red Blood Count 5.37mil/mm3 (4.40-5.80) Hemoglobin 16.3g/dL (13.8-17.2) Hematocrit 47.3% (41.0-50.0) Mean Corpuscular Volume 88.1fL (81-100) Mean Corpuscular Hemoglobin 30.4pg (27.0-35.0) Mean Corpuscular Hemoglobin Concent 34.5% (32.0-37.0) Red Cell Distribution Width 12.6% (12.3-15.4) Platelet Count 166bil/L (150-400) Total Creatine Kinase 722U/L (21-232) Creatine Kinase MB 105.7ng/mL (0.0-10.4) Creatine Kinase MB % 14.6% (0.0-5.0) Sodium Level 139mEq/L (134-144) Potassium Level 4.4mEq/L (3.5-5.2) Chloride Level 101mEq/L (97-108) Carbon Dioxide Level 25mmol/L (18-29) Blood Urea Nitrogen 15mg/dL (8-27) Creatinine 1.05mg/dL (0.76-1.27) Estimat Glomerular Filtration Rate 75mL/min (>59) Glucose Level 117mg/dL (60-99) Calcium Level 9.8mg/dL (8.5-10.1) Discharge Medications Discharge Medications Aspirin (Aspirin) 81 Mg Tablet 81 MG PO DAILY (Reported) Atorvastatin (Lipitor) 80 Mg Tablet 80 MG PO DAILY Prescribed by: YA MILES Carvedilol (Carvedilol) 3.125 Mg Tablet 3.125 MG PO BID Prescribed by: YA MILES Clopidogrel (Clopidogrel) 75 Mg Tablet 75 MG PO DAILY Prescribed by: YA MILES Lisinopril (Lisinopril) 5 Mg Tablet 5 MG PO DAILY Prescribed by: YA MILES As needed Nitroglycerin SL (Nitrostat) 0.4 Mg Tab.subl 0.4 MG SL Q5MIN PRN PRN For Chest Pain IF SBP > 90 Take one tablet under toungue when have chest pain; can take every 5 min max 3 times; if does not help, call 911 Prescribed by: YA MILES Miscellaneous Medications Multivitamin (Multivitamins) 1 Each Capsule 1 EACH PO (Reported) Additional med instructions Please take all medications as prescribed. It is very important that you take Clopidogrel (Plavix) every day at least 2 month and preferably the whole year if you tolerate it well. You will need to take baby Aspirin every day indefinitely. Please do not stop any medications and especially Clopidogrel (Plavix) without consulting with Manager Switch. Followup Plan Follow-up plan Please do blood work: CMP and CBC in one week Discharge Diet: Low fat, Low Sodium, Heart Healthy Discharge Activity: Other (Please see below) Patient Instructions You can take shower starting from today. Please do not soak in bath tub for one week. No car driving for couple of days. No heavy lifting, no more than 7-10lb for one week. Otherwise you can be physically active as tolerated. If you have chest pain, please call 911 and go to ER. Provider: Yogesh Dave MD Follow-up in: 3 weeks Royal Robin PA-C July 21, 2016 12:13
[2016-07-21] MEDS ORDERED: CARV3.122 PO (12:20)
--- NOTE | 2016-07-21 13:38 | NUR ---
Discharge Pt discharged at 1340. He was given discharge instructions and instructions for follow up care (he would be following up with cardiology). He was given prescriptions to take with him. He was given information regarding stent placement and instructions for after care. He reported he had no questions. His significant other also stated she had no questions at time of discharge. He left with all of his belongings in his possession. Prior to discharge he ambulated in the hallway with his SO and reported having no pain. Groin sites were well approximated with no signs of bleeding or oozing.
--- NOTE | 2016-07-21 14:05 | NUR ---
Social Work Note: Initial Assessment/Discharge Data& Assessment: EMR reviewed. Benitez Machado is a 65 year old male admitted on 07/19/2016 for acute chest pain and stemi. Per pt is medically ready to discharge. SW met with pt and pt at bedside to confirm discharge plan and assess for any unmet needs, SW role explained. Pt lives in [place] with his spouse and is independent at baseline with all ADL's and no use of DME. Pt does not have SNF or HH hx. Pt does not have HH or SNF hx. Pt has [facility] [employer] [facility] insurance coverage and sees Mookie Rivera for primary care. Pt drives but his plans to transport him home this afternoon. Pt accepted DPOA/Advance Directive paperwork to review and complete when possible. Pt and pt denies any other needs. No other discharge needs identified. Plan: Per pt is medically ready to discharge home via POV. Pt and pt denies any other needs. No other discharge needs identified. DASH Silva Addendum: 07/21/16 at 1410 by LINA ROSENBAUM Amended: Links added.
== END 2016-07-21 13:43 | disposition home or self-care (01) | DRG 249 ==
LOC: SED 10:45 → SPI 11:00 → CCU 14:23 → PCC 07-20 15:00
PROVIDERS: ADMIT Internal Medicine Cardiovascular Disease; ATTEND Internal Medicine Cardiovascular Disease
PROC: 02703DZ Dilation of Coronary Artery, One Artery with Intraluminal Device, Percutaneous Approach (ICD-10-PCS; principal; 2016-07-19)
PROC: 4A023N7 Measurement of Cardiac Sampling and Pressure, Left Heart, Percutaneous Approach (ICD-10-PCS; 2016-07-19)
PROC: B2151ZZ Fluoroscopy of Left Heart using Low Osmolar Contrast (ICD-10-PCS; 2016-07-19)
PROC: B2111ZZ Fluoroscopy of Multiple Coronary Arteries using Low Osmolar Contrast (ICD-10-PCS; 2016-07-19)
DX: I21.11 ST elevation (STEMI) myocardial infarction involving right coronary artery (principal); I10 Essential (primary) hypertension; I25.10 Atherosclerotic heart disease of native coronary artery without angina pectoris

== ENCOUNTER 2016-07-29 00:42 | Day surgery (SDC) | payer OTHER ==
[2016-07-29] VITALS (16 sets, daily range): BP systolic 123–147; BP diastolic 74–113; PULSE 61–86; RESP 15–24; O2SAT 93–98
[~2016-07-29] VITALS: Ht 177.8 cm; Wt 90.0 kg
[~2016-07-29 00:42] MED LIST changes: -0.9% Sodium Chloride 250 ML ONE; +ASPI-973 PO; +ATOR80TA PO; +CARV3.122 PO; +CLOP75TA28 PO; -Heparin 1,000 Unit/mL 10 mL Inj ONE; -Heparin 1,000 Units/500 mL NS Premix IV ONE; -Heparin 10,000 Unit/1,000 mL NS Premix IV ONE; -Heparin 5,000 Units/500 mL NS Premix IV ONE; +LISI-571 PO; +MULT1CAP33 PO; +NITR0.4T SL; -NitroPRUSSIDE 25,000 mCg/mL 2 mL Inj IV ONE; -Nitroglycerin 50,000 mcg/250 mL D5W Premix IV ONE
[2016-07-29] MEDS ORDERED: 0.9% Sodium Chloride 1,000 ML IV ONE (08:43)
[2016-07-29 12:29] LABS: BASOPHILS % (AUTO) 0.8 % (0-3); EOSINOPHILS % (AUTO) 3.5 % (0-5); MONOCYTES % (AUTO) 7.2 % (4-12); Mean Corpuscular Hemoglobin 29.9 pg (27.0-35.0); Mean Corpuscular Volume 89.2 fL (81-100); NEUTROPHILS % (AUTO) 67.3 % (40-74); Platelet Count 273 bil/L (150-400)
[2016-07-29] MEDS ORDERED: Heparin 1,000 Units/500 mL NS Premix IV ONE (14:00)
[2016-07-29] MEDS ORDERED: Nitroglycerin 50,000 mcg/250 mL D5W Premix IV ONE (14:00)
[2016-07-29] MEDS ORDERED: Heparin 10,000 Unit/1,000 mL NS Premix IV ONE ×2 (14:01→14:36)
[2016-07-29] MEDS ORDERED: Heparin 1,000 Unit/mL 10 mL Inj ONE (14:01)
[2016-07-29] MEDS ORDERED: fentaNYL-PF 50 mCg/mL 2 mL Inj ONE (14:07)
--- NOTE | 2016-07-29 14:07 | NUR ---
Pre Heart cath Pt arrived to [facility] at 1150, accompanied by . IVs started X2, labs sent. Admission completed. Pt w/ significant bruising to right groin from recent heart cath. Dr. Castle in to see pt and order for US of right groin r/o pseudo aneurysm. Completed at 1350, which was negative. Pt taken to labor arbitrator at 1405 in stable condition.
--- NOTE | 2016-07-29 16:41 | DRSVH ---
PROCEDURE: US DUPLEX DOPPLER UNILATERAL LEG ARTERIES, RIGHT INDICATIONS: RULE OUT PSUEDOANUEYRSM TECHNIQUE: Color and pulse Doppler interrogation was performed of the both groins with image documentation. COMPARISON: None. FINDINGS: Right: There is a small 4 mm hematoma in the right groin. No evidence for pseudoaneurysm or AV fistul a. The right common, superficial and profunda femoral arteries are patent with normal waveforms. The right common femoral vein is patent with normal waveform. Left: The left common, superficial and profunda femoral arteries are patent with normal waveforms. Th e left common femoral vein is patent with normal waveform. No hematoma, pseudoaneurysm or AV fistula . IMPRESSION: 1. No pseudoaneurysm or AV fistula in the groin on either side. 2. A small 4 mm hematoma in the right groin. Dictated by: Jennie Dockery M.D. on 07/29/2016 at 16:32 Approved by: Jennie Dockery M.D. on 07/29/2016 at 16:40
--- NOTE | 2016-07-29 18:44 | NUR ---
[facility] Patient return to [facility] from labor mediator at 1610. Denies pain. No bleeding or hematoma at right groin puncture. Significant bruising and area of firmness from previous procedure. US prior to procedure R/O pseudo aneurysm. Pedal pulses present. Post procedure ECG 12 complete. Patient taking PO, ate dinner and void pr urinal. Transferred to room 2028 by bed at 1815. Report to receiving RN. Family at bedside.
[2016-07-29] MEDS ORDERED: 0.9% Sodium Chloride 1,000 ML IV PRN (19:06)
[2016-07-29] MEDS ORDERED: 0.9% Sodium Chloride 250 ML IV PRN (19:06)
[2016-07-29] MEDS ORDERED: Atropine 1 mg/10 mL (Code) Syringe IVPUSH PRN (19:10)
[2016-07-29] MEDS ORDERED: Ondansetron 2 mg/mL 2 mL Inj IVPUSH PRN (19:10)
[2016-07-29] MEDS ORDERED: Nitroglycerin 50 mg/250 mL D5W Premix IV SCH (19:20)
--- NOTE | 2016-07-29 20:14 | NUR ---
Post cardiac cath Patient arrived to floor at about 1830 via bed. Report received from Amelie LIM RN. Pt Alert and Oriented. Baseline vitals charted. Pt off bedrest at time of arrival per report. NS at 100ml, Nitro drip at 10mcg per min. Pt denied pain or nausea. Clear dressing with gauze to right femoral site show no signs of bleeding. Small hematoma noted however per report, hematoma from previous cardiac cath. Right pedal pulses present with warmth to extremity. Patient denies numbness or tingling. Report given to oncoming RN.
--- NOTE | 2016-07-29 21:33 | DI95 ---
[address] [address] INTERVENTIONAL CARDIAC CATHETERIZATION PATIENT: WAYNE HERMAN : 1950 MR#: [id number] ADMIT: 07/29/2016 JOB ID: [id number] DATE OF SERVICE: 07/29/2016 PROCEDURE: Percutaneous intervention on the chronically occluded left anterior descending. PROCEDURAL DETAILS: These are well enumerated in the procedure log to which the reader and the coders are referred. Briefly, it was done via right femoral approach using a 7-Georgian system. A Voda 3.5 7-Georgian guide was used and multiple wires were used. INTERVENTIONAL REPORT: After selectively cannulating the left main with a Voda guide, a BMW wire was placed in the circumflex. The LAD is totally occluded at the ostium. There was a slight nub. At this point, there is takeoff of two ramus intermedius branches. Also, both of these were moderate caliber vessels. We were able to cross the very proximal part of the LAD with a Run-through wire, however, not unexpectedly, it would not travel further down because of another short segment occlusion. We finally ended up using a Associate Professor [employer] Psychology 50 wire loaded over a Fine Cross catheter. We were able to get this wire into the proximal LAD. This wire was then swapped for a Associate Professor Of Psychology 150 wire which got us into the diagonal which takes off in the midportion of the LAD. We had to swap out the Fine Cross for a 1.20 x 20 mm balloon. This balloon tracked better than the Fine Cross and we also did balloon angioplasty with this. After balloon angioplasty with this very small balloon it became readily apparent that the LAD was diffusely diseased. We were finally able to redirect our wire from the diagonal into the distal LAD. We used a balanced heavy weight wire. Following that, balloon angioplasty was then done with a 2.0 balloon and a 2.5 balloon. At this point, the wire got stuck to my hand and accidentally got pulled out. Thankfully, we were readily able to get across this balloon angioplastied segment with another run-through wire. Finally, we ended up stenting from mid to ostial LAD. The 2.5 x 28 mm stent was deployed distally and a 2.75 x 15 mm overlapping stent was deployed proximally. Finally, we ended up with kissing balloon inflations in the left main. Of note, the ostium of the LAD was dilated up to 16 atmospheres. Following that, there was transient into the distal LAD. We placed the wire back down into the distal LAD. However, the wire traveled into the diagonal which was initially occluded after stent placement. The mere wire crossing that lesion was enough to establish flow into this diagonal. And with nitroglycerin we were able to establish flow into the distal vessel as well. The apical LAD does have disease. This is a small caliber vessel and I deliberately chose not to intervene on that. In summary, successful intervention on a chronically occluded LAD with two drug-eluting stents. The patient is advised to hold antiplatelet therapy for one year postprocedure.
[2016-07-30 03:15] VITALS: BP 131/75; PULSE 74; RESP 16; O2SAT 97
[2016-07-30 03:57] VITALS: PULSE 85
--- NOTE | 2016-07-30 06:15 | NUR ---
Cardiac/Resp./Nitro gtt Patient resting in bed, pleasant and cooperative, significant other at bedside, right groin site clean dry and intact, previous small hematoma present from last cardiac cath per report in right groin, NTG gtt infusing at 10mcg/min, denies chest pain, no headache from nitro gtt, tolerating well and vital signs stable, patient independent in room, call light in reach. Addendum: 07/30/16 at 0616 by JOCY SAMSON RN Amended: Links added.
[2016-07-30 08:00] VITALS: PULSE 81
[2016-07-30 08:31] VITALS: BP 147/83; PULSE 81; RESP 18; O2SAT 97
[2016-07-30 12:36] VITALS: BP 132/80; PULSE 76; RESP 18; O2SAT 96
[2016-07-30] MEDS ORDERED: ISOS40TA16 PO (13:27)
== END 2016-07-30 15:01 | disposition home or self-care (01) ==
LOC: SOUO 00:42 → PCC 18:19 → SOUO 07-30 15:01
PROVIDERS: ATTEND Internal Medicine Cardiovascular Disease
DX: I25.10 Atherosclerotic heart disease of native coronary artery without angina pectoris (principal); I25.82 Chronic total occlusion of coronary artery
CPT/HCPCS: 36415; 80048; 85025; 93005; 93926; 99152; 99153; C1725; C1760; C1769; C1874; C1887; C9607; J1200; J1644; J2060; J2250; J3010; J7030; Q9967